=== PATIENT | female | born 1940 | race Caucasian/White ===

== ENCOUNTER → 2016-07-15 | Outpatient (CLI) | payer MEDICARE, OTHER ==
[~2016-07-15] MED LIST: ASPIR 8181 MG PO; ELIQUIS5 MG PO; HYDROCHLOROTHIA25 MG PO; JANUVIA25 MG PO; LEVAQUIN500 MG PO; LISINOPRIL20 MG PO; LORATADINE10 MG PO; MAGNESIUM OXID400 MG PO; METFORMIN HCL500 MG PO; NITROGLYCERIN2.5 MG PO; PROPAFENONE HC150 MG PO; TRAZODONE HCL50 MG PO; TYLENOL W/CODEIN1 E1 PO; VALIUM 2 MG TAB2 MG PO; ZOCOR20 MG PO
== END ==
LOC: HEART 5 09:05
DX: I11.9 Hypertensive heart disease without heart failure (principal); I48.91 Unspecified atrial fibrillation; I27.2 Other secondary pulmonary hypertension; I08.1 Rheumatic disorders of both mitral and tricuspid valves
CPT/HCPCS: 93306

== ENCOUNTER → 2016-07-22 | Outpatient (CLI) | payer MEDICARE, OTHER ==
[~2016-07-22] VITALS: Ht 162.6 cm; Wt 61.7 kg
== END | disposition home or self-care (01) ==
LOC: CATH 06:42
DX: Z45.010 Encounter for checking and testing of cardiac pacemaker pulse generator [battery] (principal); I49.5 Sick sinus syndrome; I11.0 Hypertensive heart disease with heart failure; I50.22 Chronic systolic (congestive) heart failure; I48.2 Chronic atrial fibrillation; I44.30 Unspecified atrioventricular block; I42.0 Dilated cardiomyopathy; E78.5 Hyperlipidemia, unspecified; E11.9 Type 2 diabetes mellitus without complications; I48.91 Unspecified atrial fibrillation; Z79.82 Long term (current) use of aspirin; Z79.84 Long term (current) use of oral hypoglycemic drugs; Z79.899 Other long term (current) drug therapy; Z79.02 Long term (current) use of antithrombotics/antiplatelets; Z86.718 Personal history of other venous thrombosis and embolism
CPT/HCPCS: 82962; C1785; J0360; J2250; J2405; J3010; J3370; J7040; J7050